=== PATIENT | male | born 1970 | race Two or more races ===

== ENCOUNTER 2019-04-17 08:37 | Emergency (ER) | payer OTHER ==
[~2019-04-17] VITALS: Ht 180.3 cm; Wt 90.7 kg
== END 2019-04-17 12:39 | disposition home or self-care (01) ==
LOC: ER 08:37
DX: K52.89 Other specified noninfective gastroenteritis and colitis (principal)

== ENCOUNTER 2025-04-22 11:14 | Emergency (ER) | payer OTHER ==
[~2025-04-22] VITALS: Ht 180.3 cm; Wt 102.1 kg
[~2025-04-22 11:14] MED LIST: MICARDIS20 MG PO
[2025-04-22] MEDS ORDERED: ZETIA10 MG (12:13)
[2025-04-22] MEDS ORDERED: TRAMADOL HCL 50 MG TABLET PO STA (13:31)
[2025-04-22] MEDS ORDERED: KETOROLAC TROMETHAMINE 60 MG VIAL IM STA (13:31)
[2025-04-22] MEDS ORDERED: KETOROLAC TROMETHAMINE 60 MG VIAL IM ONE (14:01)
== END 2025-04-22 15:07 | disposition home or self-care (01) ==
LOC: ER 11:14
DX: G89.11 Acute pain due to trauma (principal); M79.672 Pain in left foot; M25.572 Pain in left ankle and joints of left foot
CPT/HCPCS: 73610; 73630; 96372; 99283; J1885

== ENCOUNTER 2025-05-06 09:52 | Emergency (ER) | payer OTHER ==
[~2025-05-06] VITALS: Ht 152.4 cm; Wt 99.8 kg
[~2025-05-06 09:52] MED LIST changes: +ZETIA10 MG
[2025-05-06] MEDS ORDERED: LOSARTAN POTASSIUM 50 MG TABLET PO ONE (11:15)
[2025-05-06] MEDS ORDERED: HYDROCHLOROTHIAZIDE 12.5 MG CAPSULE PO ONE (11:15)
[2025-05-06 12:48] LABS: BASO % 0.7 % (0.1-1.2); EOS # 0.12 (0.04-0.54); EOS % 1.4 % (0.7-7.0); HEMATOCRIT 40.6 % (40.1-51.0); HEMOGLOBIN 14.8 g/dL (13.7-17.5); LYMPH # 1.97 (1.18-3.74); LYMPH % 22.6 % (19.3-53.1); MONO # 1.03 (0.24-0.82); MONO % 11.8 % (4.7-12.5); PLATELET COUNT 232 K/uL (163-369); RED BLOOD COUNT 4.35 M/uL (4.63-6.08); RED CELL DISTRIBUTION WIDTH 11.5 % (11.6-14.4)
[2025-05-06 13:02] LABS: INFLUENZA A AG NEGATIVE (NEGATIVE); INFLUENZA B AG NEGATIVE (NEGATIVE)
[2025-05-06 13:08] LABS: COVID-19 AG POSITIVE (NEGATIVE)
[2025-05-06] MEDS ORDERED: BENZONATATE200 M1 PO (13:18)
[2025-05-06] MEDS ORDERED: LEVALBUTER0.63 MG/3 IH (13:22)
== END 2025-05-06 13:28 | disposition home or self-care (01) ==
LOC: ER 10:03
PROVIDERS: General Practice
DX: U07.1 COVID-19 (principal); I10 Essential (primary) hypertension